=== PATIENT | female | born 1990 | race Native Hawaiian/Other Pacific Islander ===

== ENCOUNTER 2017-06-08 21:18 | Emergency (ER) | payer MEDICAID ==
[2017-06-08 21:26] VITALS: BP 122/78; PULSE 51; RESP 18; TEMP 97.9; O2SAT 97
--- NOTE | 2017-06-08 21:55 | ED PDOC ---
Arrival/HPI - General Chief Complaint: Dental Pain Time Seen by Provider: 06/08/17 21:25 Historian: Patient - History of Present Illness Narrative History of Present Illness (Text): 06/08/17 21:50 26 y.o. female who comes to the ED with complaint of L side dental pain progressively over the past one month; she says it is worse with eating, especially over the past three days. it is mainly her posterior left lower molars. No fever or difficulty swallowing. She has been gargling with salt but has not taken any pain medications for the pain. Past Medical History - Infectious Disease Hx of Infectious Diseases: None - Psychiatric Hx Substance Use: No - Surgical History Other/Comment: sinus sx - Anesthesia Hx Anesthesia: Yes Hx Anesthesia Reactions: No Family/Social History Family/Social History: No Known Family HX Smoking Status: Never Smoked Hx Alcohol Use: No Hx Substance Use: No Allergies/Home Meds Allergies/Adverse Reactions: Allergies Penicillins Allergy (Verified 06/08/17 21:26) ANGIOEDEMA Review of Systems - Review of Systems Constitutional: absent: Fevers ENT: Other (dental pain). absent: Voice Changes, Sore Throat Respiratory: absent: SOB Physical Exam Vital Signs Temp Pulse Resp BP Pulse Ox 06/08/17 21:24 97.9 F 51 L 18 122/78 97 Temperature: Afebrile Blood Pressure: Normal Pulse: Bradycardic Respiratory Rate: Normal Appearance: Positive for: Well-Appearing, Non-Toxic, Comfortable Pain Distress: None Mental Status: Positive for: Alert and Oriented X 3 - Systems Exam Head: Present: Atraumatic, Normocephalic. No: Other (no facial swelling) Mouth: Present: Moist Mucous Membranes, Normal Lips, Other (ttp of the posterior left lower 2nd and 3rd molar). No: Drooling, Trismus Pharnyx: Present: Normal. No: ERYTHEMA, EXUDATE, TONSILS ENLARGED, Peritonsilar Swelling, Uvular Deviation, Muffled/Hoarse Voice, Strider, Soft Palate/Uvular Edema, Other Neck: Present: Normal Range of Motion, Trachea Midline. No: Meningeal Signs, Lymphadenopathy Medical Decision Making ED Course and Treatment: 06/08/17 21:56 Patient with dental pain with no facial swelling or concerns of robin's - she is pcn allergic - will start on clinda and nsaids and she will f/u dental. - Medication Orders Current Medication Orders: Discontinued Medications Clindamycin HCl (Cleocin) 300 mg PO STAT STA PRN Reason: Protocol Stop: 06/08/17 21:47 Ibuprofen (Motrin Tab) 600 mg PO STAT STA Stop: 06/08/17 21:48 Disposition/Present on Arrival - Present on Arrival Any Indicators Present on Arrival: No History of DVT/PE: No History of Uncontrolled Diabetes: No Urinary Catheter: No History of Decub. Ulcer: No History Surgical Site Infection Following: None - Disposition Have Diagnosis and Disposition been Completed?: Yes Diagnosis: Pain, dental Disposition: HOME/ ROUTINE Disposition Time: 22:00 Patient Plan: Discharge Patient Problems: Current Active Problems Problem Status Onset Pain, dental Acute Condition: GOOD Additional Instructions: Take the antibiotics and ibuprofen as prescribed. Follow up with dentist. Return to the emergency department if any new concerning symptoms. Prescriptions: Clindamycin [Cleocin] 2 cap PO TID #60 cap Ibuprofen [Motrin Tab] 1 tab PO Q8H PRN #20 tab PRN Reason: Pain, Moderate (4-7)
== END 2017-06-08 21:59 | disposition home or self-care (01) ==
LOC: ED 21:18
DX: K08.89 Other specified disorders of teeth and supporting structures (principal)